=== PATIENT | male | born 1950 | race Caucasian/White ===

== ENCOUNTER 2016-12-02 21:11 | Inpatient (IN) ==
--- NOTE | 2016-12-02 21:39 | Diag Imaging Result Doc PS360 ---
EXAM: CT HEAD W/O CONTRAST HISTORY: UNSTEADY GAIT, BLURRED VISION TECHNIQUE: CT brain without contrast. Dose reduction protocol. COMPARISON: 12/03/2015 FINDINGS: No parenchymal hemorrhage. No epidural or subdural hematoma. No subarachnoid hemorrhage. No mass identified on this noncontrasted exam. No hydrocephalus. Mild atrophy. There are mild chronic microvascular ischemic changes. No sinus opacification. IMPRESSION: No hemorrhage. Atrophy with chronic microvascular ischemic changes. Electronically signed by Harvinder Fernandez 12/02/2016 9:37 PM
--- NOTE | 2016-12-02 21:52 | PROVIDER DOCUMENTATION ---
HPI-General Adult - General Stated Complaint: UNSTEADY GAIT, BLURRED VISION Time Seen by Provider: 12/02/16 21:25 Source: patient Allergies/Adverse Reactions: Patient Allergies Allergy/AdvReac Type Severity Reaction Status Date / Time No Known Allergies Allergy Verified 12/02/16 21:59 Home Medications: Home Medication List Medication Instructions Recorded Confirmed Last Taken Type Ipratropium/Albuterol INH 1 puff INH RTQ6H PRN 12/16/15 08/06/16 08/05/16 History [Combivent Respimat Inhaler] Oxycodone HCl/Acetaminophen 1 each PO Q4H PRN PRN 12/16/15 08/06/16 08/05/16 History [Percocet 10-325 mg Tablet] Albuterol 2.5MG/Ipratrop 0.5MG 3 ml INH RTQ4H #0 neb 12/21/15 08/06/16 08/05/16 Rx [Duoneb (A & A)] Ergocalciferol (Vitamin D2) 50,000 unit PO Q7D #0 capsule 12/21/15 08/06/16 Rx [Vitamin D] Escitalopram [Lexapro] 20 mg PO QAM #0 tablet 12/21/15 08/06/16 08/05/16 Rx Gabapentin [Neurontin] 600 mg PO TID #0 tablet 12/21/15 08/06/16 08/05/16 Rx Mometasone/Formoterol [Dulera 200 2 puff IH RTBID #0 inhaler 12/21/15 08/06/16 08/05/16 Rx Mcg/5 Mcg Inhaler] ROSUVAstatin [Crestor] 5 mg PO QPM #0 tablet 12/21/15 08/06/16 08/05/16 Rx Pantoprazole [Protonix] 40 mg PO BID 07/05/16 08/06/16 08/05/16 History Hydrochlorothiazide 0 mg PO 08/06/16 08/05/16 History Metoprolol Succinate E.r. [Toprol 100 mg PO DAILY 08/06/16 08/06/16 08/05/16 History Xl] - History of Present Illness -Gen Adult Nature of Presenting Problems: Mr. Orona states that as of this morning he has developed double vision worse with movement. No previous such events. It is also associated with balance issues. He feels as if he is going to fall over. No recent infections or sickness. Denies chest pain or shortness of breath. Denies previous stroke. Is 1PPD smoker. Patient recently stopped taking Elliquis for the past week so that he may receive spinal shots for his back pain. He also has stopped taking his aspirin since he ran out. Location of Pain/Injury: reports: none Pain Radiation: reports: no radiation Quality of Pain: reports: none Severity: reports: mild Onset/Duration: reports: this morning Context/Activities at Onset: reports: none Modifying Factors: improves with: nothing Associated Symptoms: reports: sensory/motor loss, trouble walking, other ( double vision). denies: syncope Similar Symptoms Previously?: No Recently seen or treated by another doctor?: No Review of Systems - Adult - REVIEW OF SYSTEMS - ADULT Constitutional: reports: no symptoms reported Eyes: reports: see HPI, blurred vision, double vision. denies: discharge, dry eyes, decreased vision, eye pain, redness Ears, Nose, Mouth & Throat: reports: no symptoms reported Cardiovascular: reports: no symptoms reported Respiratory: reports: no symptoms reported Gastrointestinal: reports: no symptoms reported Genitourinary: reports: no symptoms reported Musculoskeletal: reports: no symptoms reported, other (difficulty walking of new onset) Integumentary: reports: no symptoms reported Neurological: reports: dizziness/vertigo, loss of balance Psychiatric: reports: no symptoms reported Endocrine: reports: no symptoms reported Hematologic/Lymphatic: reports: no symptoms reported Allergic/Immunologic: reports: no symptoms reported All Other Systems: Reviewed and Negative Past History - Adult - PAST MEDICAL HISTORY-ADULT Review of Records: reports: Old Records Reviewed, Nursing Assessment Review, Medications Reviewed, Social history reviewed & non-contributory. Major Childhood Illnesses: reports: denies history Cardiovascular: reports: denies history Respiratory: reports: COPD Gastrointestinal: reports: denies history Obstetrical/Gynecological: reports: denies history Genitourinary: reports: denies history Musculoskeletal: reports: other fractures (pelvic) Neurological: reports: denies history Endocrine/Immune: reports: denies history Other Conditions: reports: denies history - PRIOR HOSPITALIZATIONS Prior Hospitalizations: reports: for other non-related - IMMUNIZATION STATUS Childhood Immunizations: See Nurse Assessment Flu Vaccine: See Nurse Assessment - SOCIAL HISTORY Smoking: cigarettes Provider spent 3-5 mins advising pt. on dangers of tobacco.: Discussed manners to quit use, and f/u contacts for add'l counseling. Physical Exam-General - PHYSICAL EXAM-ADULT Initial Vital Signs Reviewed: Yes - CONSTITUTIONAL General Appearance: appears well, alert, no apparent distress - EYES Eyes: PERRL/EOMI, pink conjunctivae, EOM palsy, other (symptoms of Internuclear ophthalmoplegia). negative: conjuctival exudate, photophobia, sclera injected, scleral icterus - HEAD, EARS, NOSE, MOUTH & THROAT HENMT: normocephalic/atraumatic - NECK Neck: non-tender - RESPIRATORY Respiratory: chest non-tender - CARDIOVASCULAR Cardiovascular: normal peripheral pulses, no JVD - GASTROINTESTINAL (ABDOMEN) Abdominal Exam: normal bowel sounds - LYMPHATIC Lymphatic: no adenopathy - MUSCULOSKELETAL Back Exam: normal inspection, kyphosis, other (mild ataxic gait of new onset. resting tremor is at baseline) Extremity: normal range of motion - SKIN Integumentary: normal color - NEUROLOGIC Neurologic: cafe attendant II-XII nml as tested, abnormal cerebellar tests, abnormal gait, motor weakness. negative: facial droop - PSYCHIATRIC Psych/Mental Status: normal mood/affect Progress - PLAN OF CARE/RESULTS Progress/Plan/Lab Results: Orders Category Date Time Status Cardiac Monitoring DIRECTED Care 12/02/16 21:25 Active Finger Stick Blood Sugar (ED) DIRECTED Care 12/02/16 21:25 Active Saline Loc NOW Care 12/02/16 21:25 Active CHEST-PORTABLE [RAD] Stat Exams 12/02/16 21:[address] HEAD W/O CONTRAST [CT] Stat Exams 12/02/16 21:13 Completed CBC WITH ELECTRONIC DIFF [HEME] Stat Lab 12/02/16 21:25 Uncollected COMPREHENSIVE METABOLIC PANEL [CHEM] Stat Lab 12/02/16 21:25 Uncollected PROTIME WITH INR [COAG] Stat Lab 12/02/16 21:25 Uncollected PTT [COAG] Stat Lab 12/02/16 21:25 Uncollected TROPONIN T Stat Lab 12/02/16 21:25 Uncollected URINALYSIS W/POSS RFLX CULT-1 [URINALYSIS] Stat Lab 12/02/16 21:25 Uncollected URINE DRUG SCREEN Stat Lab 12/02/16 21:25 Uncollected EKG [EKG] Stat Ther 12/02/16 21:25 Ordered Result Diagrams: 12/02/16 21:40 12/02/16 21:40 - REASSESSMENT Reassessment #1 Time Reassessed: 00:36 (Patient status unchanged since admission. Discussed with Dr. Snyder (hospitalist) to have the patient admitted for full stroke workup. ) Status: unchanged Departure - Departure Date of Disposition Decision: 12/03/16 Time of Disposition Decision: 00:35 DIAGNOSIS: Stroke, Blurred vision Disposition: ADMITTED INPATIENT 09 Certified Medical Emergency: Emergent Condition: Fair Referrals and Follow-Ups: Winter Lee MD [Primary Care Provider] - Discharge Education: Smoking, You Can Quit, [id number], Smoking Cessation, Tips for Success - Critical Care Note This patient required my direct & personal management of CC.: No Attestation - Physician/ MELE Attestation Patient care was provided by Advanced Practice Provider:: No The physician spent face to face time with patient:: Yes Advanced Practice Provider documentation review:: Supervising physician onsite and consulted in the evaluation and care of this patient. The physician did have a face to face encounter with the patient.
[2016-12-02 22:06] LABS: MANUAL DIFF NEEDED? NO
[2016-12-02 22:09] LABS: BASO% 0.5 % (0.0-0.8); EOS# 0.08 X1000 (0.0-0.7); EOS% 0.6 % (0.0-10.0); HEMATOCRIT 41.8 % (42.0-52.0); HEMOGLOBIN 14.5 g/dL (14.0-18.0); IMM GRAN% 1.5 % (0.0-0.5); LYMPH# 2.31 X1000 (1.2-3.4); LYMPH% 17.4 % (20.5-51.1); MCH 30.6 PG (27-31); MCHC 34.7 g/dL (33-37); MCV 88.2 FL (81-99); MONO# 1.38 X1000 (0.11-0.59); MONO% 10.4 % (1.7-9.3); MPV 11.1 FL (7.4-10.4); NEUT% 69.6 % (42.2-75.2); PLT 271 X1000 (130-400); RBC 4.74 XMIL (4.7-6.1)
--- NOTE | 2016-12-02 22:09 | Diag Imaging Result Doc PS360 ---
EXAM: CHEST-PORTABLE HISTORY: stroke like symptoms TECHNIQUE: Portable AP COMPARISON: 07/21/2016 FINDINGS: Sternal wires are present. Lungs are well expanded. The heart is not enlarged. The vessels are not distended. No consolidation. No pleural effusions identified. IMPRESSION: Negative chest. Electronically signed by Harvinder Fernandez 12/02/2016 10:07 PM
[2016-12-02 22:21] LABS: INR 1.08; PROTIME 11.4 Seconds (9.2-11.7); PTT 24.2 Seconds (22.0-36.0)
[2016-12-02 22:32] LABS: ALBUMIN 4.1 g/dL (3.5-5.0); CALCIUM 9.7 mg/dL (8.8-10.2); POTASSIUM 3.7 mmol/L (3.5-5.1); TOTAL BILIRUBIN 0.48 mg/dL (0.20-1.00); TOTAL PROTEIN 7.8 g/dL (6.3-8.3)
[2016-12-03 00:04] LABS: URINE CULTURE NEEDED? NO; URINE MICRO REVIEW NEEDED? NO; URINE SOURCE CLEAN CATCH
[2016-12-03] MEDS ORDERED: NS 1,000 ML IV ONE (00:05)
--- NOTE | 2016-12-03 00:11 | ED EKG INTERP ---
This chart was entered by Iza Rai Scribe, acting as scribe for Thomas Orr MD. EKG Interpretation - EKG Time of EKG reading by physician:: 21:41 EKG Read and Signed by:: Thomas Orr EKG Interpretation (*Must complete 3 of following elements*): Abnormal Rate: 77 Rhythm: normal sinus rhythm Comments: abnormal ECG Attestation - Physician/ MELE Attestation Patient care was provided by Advanced Practice Provider:: No The physician spent face to face time with patient:: Yes Advanced Practice Provider documentation review:: Supervising physician onsite and consulted in the evaluation and care of this patient. The physician did have a face to face encounter with the patient. This chart was documented by the indicated scribe, (Iza Rai Scribe) and accurately reflects the services I performed and decisions made by me, Thomas Orr MD, as attested by the provider's signature.
[2016-12-03 00:13] LABS: BILIRUBIN URINE NEGATIVE (NEGATIVE); BLOOD URINE NEGATIVE (NEGATIVE); COLOR YELLOW; GLUCOSE URINE NEGATIVE (NEGATIVE); LEUKOCYTES URINE NEGATIVE (NEGATIVE); NITRITE URINE NEGATIVE (NEGATIVE); PH URINE 5.5; PROTEIN URINE 30 mg/dL (NEGATIVE); SP GRAVITY URINE 1.016; TURBIDITY URINE CLEAR (CLEAR); UR EPITHELIAL CELLS <10 /HPF (<10); URINE BACTERIA NEGATIVE /HPF; URINE RBC <10 /HPF (<10); URINE WBC <10 /HPF (<10); UROBILINOGEN URINE NORMAL (NORMAL)
[2016-12-03 00:27] LABS: UR AMPHETAMINES QUAL NONE DETECTED (NONE DETECT); UR BARBITUATES QUAL NONE DETECTED (NONE DETECT); UR BENZODIAZEPIN QUAL NONE DETECTED (NONE DETECT); UR CANNABINOIDS QUAL NONE DETECTED (NONE DETECT); UR COCAINE QUAL NONE DETECTED (NONE DETECT); UR METHADONE QUAL NONE DETECTED (NONE DETECT); UR OPIATES QUAL NONE DETECTED (NONE DETECT); UR OXYCODONE QUAL NONE DETECTED (NONE DETECT); UR PCP QUAL NONE DETECTED (NONE DETECT)
[2016-12-03] MEDS ORDERED: PROTONIX IV ONE (01:40)
[2016-12-03] MEDS ORDERED: ASPIRIN PO ONE (01:40)
[2016-12-03] MEDS ORDERED: SODIUM CHLORIDE 0.9% INJ ONE (01:40)
[2016-12-03] MEDS ORDERED: ZOFRAN IV PRN (02:59)
[2016-12-03] MEDS ORDERED: TYLENOL PO PRN (02:59)
[2016-12-03] MEDS ORDERED: NICODERM PATCH TD ONE (02:59)
[2016-12-03] MEDS: NS 1,000 ML IV SCH (03:26)
[2016-12-03] MEDS: HEPARIN SUBQ SCH ×2 (03:27→21:32)
[2016-12-03] MEDS ORDERED: THIAMINE 100 MG in NS 50 ML IV ONE (04:00)
--- NOTE | 2016-12-03 05:24 | HISTORY AND PHYSICAL ---
PRIMARY CARE PROVIDER: Dr. Laguerre. CHIEF COMPLAINT: Double vision and unsteady gait. HISTORY OF PRESENT ILLNESS: This is a 66-year-old, male who presents to the emergency room tonight with 1 day of double vision and an unsteady gait. He did state that over the last month or two, his gait has become more and more unsteady, and he has had several falls. He also apparently stopped taking his Eliquis and aspirin to have epidural blocks in his back for low back pain. The patient was unable to tell us what exactly he takes Eliquis. At any rate, he was unable to tell us why he takes Eliquis but he started having increased trouble walking and double vision so he came into the emergency room. He denied any other associated symptoms such as nausea, vomiting, syncope, fever, chills, chest pain, headache. He did have complaint of abdominal pain; however, not at this time and states that he thinks he has ulcers but denies any black, tarry stools or kamille red blood in his stool. Also denies any urinary complaints. A CT scan was obtained, as well as a chest x-ray in the emergency room. The chest x- ray showed no acute disease. The CT of his head showed atrophy with chronic microvascular ischemic changes but no acute intracranial process. Laboratory data showed a sodium of 130, a BUN of 38, and a creatinine of 1.8. Urine was unremarkable. Toxicology screen was negative. On examination, the patient did show isolated left eye medial rectus palsy but otherwise was neurovascularly intact. He will be admitted to the medical floor for further evaluation and treatment. ALLERGIES: No known drug allergies. PAST MEDICAL HISTORY: 1. COPD. Continues to smoke one and a half packs of cigarettes per day. Smoking cessation was gone over with the patient. 2. Benign prostatic hyperplasia. 3. CAD. 4. Anxiety and depression. 5. Metabolic syndrome. 6. Gastritis and reflux disease. 7. Hypertension. 8. Hyperlipidemia. 9. Hypogonadism. 10. Hyperuricemia. 11. Kidney stones. 12. Umbilical hernia. PREVIOUS SURGICAL HISTORY: 1. Coronary artery bypass graft. 2. Bilateral hip surgery. SOCIAL HISTORY: . Lives in [place]. Continues to smoke a pack and a half a day. Has a remote history of alcohol abuse, drinking up to a 12 pack a day but he states that he has not drink any more than socially in the past 10 years. No illicit drug use or abuse. FAMILY HISTORY: Father had lung cancer, at age 72. Mother had diabetes mellitus and CVA. HOME MEDICATIONS: Home medication list has not been reconciled. An order was placed for nursing to reconcile home medications in the computer. REVIEW OF SYSTEMS: Fourteen point review of systems conducted with the patient. Pertinent positives listed above in the HPI. All other systems reviewed and found to be negative. PHYSICAL EXAMINATION: VITAL SIGNS: Temperature 98.1 degrees, pulse 74, respirations 19, blood pressure 128/88, oxygen saturation 94% on room air. GENERAL: A pleasant but unkempt, 66-year-old male lying on the ER stretcher. Answers all questions appropriately. No acute distress. HEENT: Head is atraumatic, normocephalic. Pupils equal, round, and reactive to light. Left eye isolated medial rectus palsy noted. Sclerae are anicteric. Conjunctivae are pink. Oral mucosa is moist. NECK: Supple. No JVD. No thyromegaly. Trachea is midline. CARDIAC: S1-S2 appreciated. No murmurs, gallops, rubs. LUNGS: Expiratory wheezing, mildly prolonged expiratory phase. No rhonchi, no rales. Symmetrical rise and fall with respirations. ABDOMEN: Protuberant, soft, nondistended, nontender. Bowel sounds hyperactive in all 4 quadrants. Umbilical hernia noted. No pulsatile mass. No organomegaly. EXTREMITIES: No clubbing, cyanosis, or edema. There are 2+ pedal pulses bilaterally. GENITOURINARY: Patient voids, otherwise deferred. NEUROLOGICAL: Alert and oriented x3. Aside from isolated medial rectus palsy in the left eye, no other cranial nerve deficits. Cranial nerve 3 was also otherwise intact. DIAGNOSTIC DATA: CT and chest x-ray, no acute intracranial process. LABORATORY DATA: WBC 13.24, hemoglobin of 14.5, hematocrit 41.8, platelet count 271,000. Coagulations within normal limits. Sodium 130, potassium 3.7, chloride 86, carbon dioxide 24, BUN 38, creatinine 1.8, glucose 148. Urine unremarkable. Toxicology screen is negative. ASSESSMENT AND PLAN: 1. 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 We will order MRI, carotid ultrasound, and echocardiogram for the morning. Further followup by Dr. Laguerre or Dr. Lee, his primary care providers. We will consult Dr. Conrad as well for evaluation. We will give a 325 aspirin but then start 162 mg aspirin daily. As noted, the patient stopped taking his Eliquis. We are unsure why he takes Eliquis at this time. We will defer to his primary care doctors restarting this medication. 2. Chronic obstructive pulmonary disease with continued tobacco use. Smoking cessation was gone over with the patient who does not want to stop. NicoDerm patch was added to his medication list. 3. Gastroesophageal reflux disease and gastritis. The patient feels as if he has an ulcer. We will consult gastroenterology to see patient, place on Protonix 40 mg intravenous every 12 hours. 4. Acute kidney injury on chronic kidney disease, I believe stage III. We will give mild fluid resuscitation. He received a liter bolus in the emergency room. 5. Hyponatremia. It is possible that the patient is on hydrochlorothiazide as well as an SSRI as he has a noted history of anxiety and depression. Again, the patient does not have a home medication list at this time but these are possible causes for hyponatremia. Hopeful that this will resolve with gentle fluid hydration. 6. Coronary artery disease, status post coronary artery bypass graft. Aware. Home medications to be continued when possible. 7. Hyperlipidemia. Patient was on Crestor. We will change to atorvastatin 40 mg daily and then defer to the primary care team. 8. Further recommendations per patient's clinical course. Dictated by DELON Funk for Natalie Snyder MD Seen and examined Pt; discussed case with LANGUAGE TEACHER. cc: DELON Funk MD Jagan Reddy, MD Bharat K. Vakharia, MD MTDD
--- NOTE | 2016-12-03 05:26 | EKG Report ---
Test Performed on : 12/02/2016 9:41:12 PM Test Reason : Stroke like symptoms Blood Pressure : / mmHG Vent. Rate : 077 BPM Atrial Rate : 077 BPM P-R Int : 134 ms QRS Dur : 088 ms QT Int : 396 ms P-R-T Axes : 008 098 264 degrees QTc Int : 448 ms Normal sinus rhythm. Rightward axis ST \T\ T wave abnormality, consider inferior ischemia ST \T\ T wave abnormality, consider anterolateral ischemia Abnormal ECG When compared with ECG of 21-JUL-2016 17:37, T wave inversion now evident in Inferior leads T wave inversion now evident in Lateral leads Unconfirmed Result
--- NOTE | 2016-12-03 07:13 | EKG Report ---
Test Performed on : 12/03/2016 06:43:06 AM Test Reason : chest pain Blood Pressure : / mmHG Vent. Rate : 073 BPM Atrial Rate : 073 BPM P-R Int : 144 ms QRS Dur : 102 ms QT Int : 424 ms P-R-T Axes : 045 095 022 degrees QTc Int : 467 ms Normal sinus rhythm. Rightward axis ST \T\ Marked T wave abnormality, consider anterolateral ischemia Prolonged QT Abnormal ECG When compared with ECG of 02-DEC-2016 21:41, Inferior leads ST less depressed in ST/T changes in the precordial leads - perhaps more evident than 12/02/2016 at 21:41pm Clinical Correlation advised Confirmed by Austin Lucio DO ([id number]) on 12/07/2016 12:14:57 PM
--- NOTE | 2016-12-03 09:53 | Diag Imaging Result Doc PS360 ---
MRI BRAIN W/O CONTRAST - 12/03/2016 INDICATION: possible midbrain cva COMPARISON: Head CT 12/02/2016 FINDINGS: There is no area of restricted diffusion. There is mild periventricular white matter hyperintensity compatible with chronic microvascular disease. No intracranial mass or hemorrhage. Midline structures including optic chiasm and pituitary are grossly normal. IMPRESSION: Mild chronic microvascular disease. No acute abnormality. Electronically signed by Shayne Burt 12/03/2016 9:51 AM
[2016-12-03] MEDS: ASPIRIN EC PO SCH (10:33)
[2016-12-03] MEDS: PROTONIX IV SCH ×2 (10:33→21:33)
--- NOTE | 2016-12-03 14:55 | CONSULTATION ---
DATE OF CONSULTATION: 12/03/2016 SUBJECTIVE: Mr. Orona is 66 years old and he reports sudden onset, midday yesterday, of vertical diplopia and unsteady gait, to the point that he could hardly walk. He did not notice weakness or clumsiness in one leg more than the other. There was never unconsciousness, altered awareness, memory gap. He noticed he would see single if he covered either eye. He did not notice blindness or focal loss of visual field. There was no significant headache. He does not recall significant slurred speech or trouble swallowing. He has never had an episode like this before. He has not had previous diagnosed stroke. There is past history of hypertension, dyslipidemia, ischemic heart disease, COPD. He continues to smoke cigarettes. He had been taking daily aspirin and Eliquis together chronically, and tolerating that regimen. He ran out of aspirin about a month ago. He stopped Eliquis a few weeks ago for a planned procedure. He had been taking his other medicines as prescribed. There is past history of significant ethanol abuse. He stopped that 6 or 7 years ago, cutting down gradually, to the point that he hardly uses ethanol at all now. He is certain that he did not become intoxicated yesterday. When he did drink heavily, he never had an episode of diplopia and gait difficulty. DIAGNOSTICS: Workup here includes lab, showing blood sugar 148, sodium 130. Initial noncontrast CT of the head was unremarkable. Brain MRI today, without contrast, is also reported unremarkable. PHYSICAL EXAMINATION: Vital signs: He has been afebrile. Systolic blood pressures have ranged 110's to 130's. General: On exam, he is awake, alert, attentive and appropriate. Speech is not dysarthric. Language function is intact. Memory is good. He did not confabulate. Head and neck are unremarkable. Neurologic: He has full visual jacob, tested monocularly by confrontational finger-counting. Extraocular movements are grossly full, based on confrontation , but he reports diplopia with vertical component, more prominent in downgaze than upgaze. With cover/uncover testing, this is consistently typical of weakness in a depressor of the left eye. Pupils react to light. There is no ptosis. Facial sensation and motility are symmetric. Gag is intact. Tongue is midline. He can hear. Shoulder shrug is equal. He has good power in the arms and legs. Limb tone is symmetric. He did well on [id number] and [id number] testing. He reports good pinprick and light touch appreciation over the feet and hands. Proprioception is normal at the great toe MTP joint bilaterally. Gait is wide-based, mostly ataxic, without definite focal features. In Romberg position he is unsteady with eyes open and with eyes closed. Ankle reflexes are trace to 1+ bilaterally. IMPRESSION: Apparent isolated left eye depressor weakness, with sudden onset, is consistent with an ischemic cranial mononeuropathy. The associated unsteady gait makes feature much more worrisome for a brainstem or cerebellar event, but negative MRI is reassuring. He has minimal clinical evidence of peripheral neuropathy, including ankle hyporeflexia, which may predispose him to unsteady gait associated with acute vision disturbance. PLAN: I do not think we have to do anything urgently from a neurologic standpoint now. We can continue to manage with aspirin, resume his anticoagulation medicine when okay, based on the planned procedure, continue to treat blood pressure cautiously, continue to treat lipids and blood sugar aggressively. I have strongly encouraged him to quit smoking cigarettes. I agree with adding thiamine, but I do not see any other evidence of Wernicke encephalopathy. Thanks for asking me to see Mr. Orona. cc: MD Brennen Pretty III, MD MTDD
[2016-12-03] MEDS: ALBUTEROL NEB INH PRN ×2 (19:40→23:03)
[2016-12-03] MEDS ORDERED: ZANAFLEX PO SCH (21:00)
[2016-12-03] MEDS: PERCOCET-5 PO PRN (21:33)
[2016-12-03] MEDS: SODIUM CHLORIDE 0.9% INJ SCH (21:33)
[2016-12-03] MEDS: LIPITOR PO SCH (21:33)
[2016-12-04] MEDS: CARAFATE LIQUID PO SCH ×5 (00:35→23:45)
--- NOTE | 2016-12-04 03:01 | PROGRESS NOTE ---
DATE: 12/03/2016 SUBJECTIVE: Patient is here with complaints of a 1-day history of headache and double vision. Was admitted yesterday by the hospitalist. REVIEW OF SYSTEMS: No headache. No obvious focal symptoms or weakness. PAST MEDICAL HISTORY: Reviewed. PAST SURGICAL HISTORY: Reviewed. MEDICINES: Reviewed. PHYSICAL EXAMINATION: Vital Signs: Afebrile. Vitals are stable. HEENT: Atraumatic, normocephalic. Pupils equal, reactive to light. No ptosis observed. To me, right eye slightly downward. Extraocular muscles intact. Neck: Supple. Chest: Clear to auscultation. Heart: Sounds are regular. Abdomen: Belly is soft, nontender. Good bowel sounds. No obvious focal symptoms. INVESTIGATIONS: CBC: White cell count 13, hematocrit 42, platelet 271,000. PT/INR is normal. SMA-7: Sodium 130, potassium 3.7, glucose 156. LFTs were normal. Triglycerides 130, cholesterol 119, HDL 25. Urinalysis is clear. Urine toxic screen is negative. ASSESSMENT AND PLAN: 1. Headache and double vision on the right side, suspicious with right 4th nerve palsy. The patient was examined in the echocardiography. He is going for MRI of the brain. Neurology consult was obtained. 2. Azotemia, hyponatremia. IV fluids. Check the SMA-7. 3. Deep venous thrombosis and gastrointestinal prophylaxis with heparin and Protonix respectively. 4. Reconcile home medications. 5. We will follow up on the pending labs. LEVEL OF DOCUMENTATION: 35 minutes. cc: Brennen Lee MD
--- NOTE | 2016-12-04 04:11 | CONSULTATION ---
DATE OF CONSULTATION: 12/03/2016 PRIMARY CARE PROVIDER: Mirna Lee M.D. INDICATION FOR CONSULTATION: 1. Dyspepsia. 2. History of peptic ulcer disease. 3. Refractory heartburn. HISTORY OF PRESENT ILLNESS: The patient is a 66-year-old white male who is followed by Dr. Hever Reilly for management of gastritis, gastric ulcer disease and gastroesophageal reflux disease. The patient states that he was doing well in his usual state of health until 1 day prior to admission. He presented with double vision and unsteady gait for 24 hours. He is on Eliquis at home. He stopped his Eliquis in order to undergo epidural blocks for his low back pain. He was subsequently admitted for further evaluation of double vision and unsteady gait. As part of his recent review of systems, he noted dyspepsia and severe heartburn. Because of his history of recurrent ulcer disease, we were asked to participate in his care. Please note during the history, the patient was sitting up in the bed and rocking in discomfort in the epigastrium. He describes severe heartburn with sour brash and pyrosis. PAST MEDICAL HISTORY: 1. COPD. 2. Benign prostatic hypertrophy. 3. Coronary artery disease. 4. Depression. 5. Metabolic syndrome. 6. Obesity. 7. Gastritis. 8. Gastroesophageal reflux disease. 9. Peptic ulcer disease. 10. Hypertension. 11. Hyperlipidemia. 12. Hypogonadism. 13. Hyperuricemia. 14. Kidney stones. 15. Umbilical hernia. PAST SURGICAL HISTORY: 1. Coronary artery bypass graft surgery. 2. Bilateral hip surgery. SOCIAL HISTORY: The patient is and lives in [place]. He smokes 1-1/2 packs of cigarettes per day. In the past, he drank up to 12 beers per day. However, for the last 10 years, he reports social alcohol use. He denies illicit drug use or substance abuse. FAMILY HISTORY: Remarkable in that his father had lung cancer and at age 72 years of age. His mother had diabetes mellitus and a stroke. MEDICATION ALLERGIES: No medication allergies. HOME MEDICATIONS: 1. Crestor. 2. Protonix. 3. Percocet 10. 4. Dulera. 5. Toprol. 6. Combivent. 7. Neurontin. 8. Lexapro. 9. Vitamin D2. 10. DuoNeb. PHYSICAL EXAMINATION: Vital Signs: On exam, his blood pressure is 135/78, pulse 81, respiration 18, temperature of 98.1 degrees. HEENT: Negative for jaundice. His oropharyngeal mucosa membranes are slightly dry. His conjunctivae are unremarkable. Pulmonary: He has inspiratory and expiratory wheezes. He has chest congestion that rattles with deep breathing. Cardiovascular: He has a regular rate and rhythm with no gallops or rubs. Abdominal: Exam reveals normoactive bowel sounds. The abdomen is soft, but distended. There is moderate epigastric tenderness with mild diffuse tenderness. There is no rebound or guarding. Extremities: Bilaterally are notable for trace edema but otherwise are unremarkable. LABORATORY DATA: Reveals a hemoglobin of 14.5 with hematocrit of 41.8 and a white count of 3.24. These labs are taken from 12/02/2016. He also had a platelet count of 271,000. Also on 12/02/2016, his PT was 11.4 with an INR of 1.08 and a PTT of 24.2. Sodium on was 130, potassium 3.7, chloride 86, CO2 26, BUN 38, creatinine 1.8 with a glucose of 124. Calcium is 9.7, total bilirubin 0.48, AST 15, ALT 9, alkaline phosphatase 76, total protein 7.8. Albumin 4.1. IMPRESSION: 1. Dyspepsia. 2. Severe heartburn. 3. Epigastric pain. 4. Borderline low hemoglobin. RECOMMENDATION: 1. I recommend that the patient be placed on Carafate 1 g 4 times a day for 12 weeks. In addition, his PPI therapy on a once-daily basis to twice-daily basis should be continued. I agree with Protonix 40 mg IV q.12 hours while as an inpatient. 2. I would monitor serial hemoglobins and hematocrits. 3. He will need transfusion as indicated. 4. Additional recommendations to follow based on the clinical course. cc: MD Brennen Alvarez MD Bharat K. Vakharia, MD Khurshid Yousuf, MD Kevin Omeara MTDD
[2016-12-04] MEDS: NS 1,000 ML IV SCH ×3 (07:09→20:59)
[2016-12-04] MEDS: ALBUTEROL NEB INH PRN ×5 (07:28→23:01)
[2016-12-04 07:33] LABS: MANUAL DIFF NEEDED? NO
[2016-12-04 07:45] LABS: BASO% 0.7 % (0.0-0.8); EOS# 0.14 X1000 (0.0-0.7); EOS% 2.1 % (0.0-10.0); HEMATOCRIT 36.3 % (42.0-52.0); HEMOGLOBIN 12.4 g/dL (14.0-18.0); IMM GRAN# 0.04 X1000 (0.0-0.04); IMM GRAN% 0.6 % (0.0-0.5); LYMPH# 1.65 X1000 (1.2-3.4); LYMPH% 24.5 % (20.5-51.1); MCH 30.6 PG (27-31); MCHC 34.2 g/dL (33-37); MCV 89.6 FL (81-99); MONO# 0.53 X1000 (0.11-0.59); MONO% 7.9 % (1.7-9.3); MPV 10.8 FL (7.4-10.4); NEUT% 64.2 % (42.2-75.2); PLT 172 X1000 (130-400); RBC 4.05 XMIL (4.7-6.1)
--- NOTE | 2016-12-04 07:47 | ECHO REPORT ---
ORDER DATE: 12/03/2016 MEASUREMENTS: Left ventricular end-diastolic diameter 4.8, end-systolic diameter 2.7, septal thickness 0.8, posterior wall thickness 0.8, left atrium 4.2, aortic root 3.9. SUMMARY: 1. Technically difficult study due to limited acoustic window quality. 2. Mild sclerosis of trileaflet aortic valve demonstrated with adequate aortic valve opening evident. Peak gradient across the valve is less than 10 mmHg. Mitral, tricuspid, and pulmonic valves are without structural abnormality with mild mitral regurgitation, mild tricuspid regurgitation, and mild pulmonic insufficiency. The estimated systolic PA pressure by Doppler is 35 to 40 mmHg. The aortic root is borderline enlarged. 3. Normal left ventricular dimensions demonstrated. Estimated left ventricular ejection fraction appears to be at least 65%. There is a small area of thinning and dyskinesis in the left ventricular apex suggesting a small apical aneurysm versus diverticulum. Doppler suggests grade 1 left ventricular diastolic dysfunction. Left atrium is mildly enlarged. Right atrium and right ventricle are of normal size with preserved right ventricular systolic function. 4. No pericardial effusion. 5. Inferior vena cava appearance suggests elevation in central venous pressure. CONCLUSIONS: 1. Technically difficult study. 2. Mild aortic valve sclerosis without stenosis. 3. Mild mitral regurgitation. 4. Mild tricuspid regurgitation with mild pulmonary hypertension by Doppler. 5. Estimated left ejection fraction at least 65%. Small area of thinning and dyskinesis in the apex suggests small apical aneurysm versus diverticulum. 6. Grade 1 left ventricular diastolic dysfunction. 7. Mild left atrial enlargement. 8. Borderline aortic root enlargement. cc: MD Deondre Zambrano CRNP Jagan Reddy, MD
[2016-12-04 08:04] LABS: CALCIUM 8.7 mg/dL (8.8-10.2)
[2016-12-04] MEDS: ASPIRIN EC PO SCH (08:22)
[2016-12-04] MEDS: PROTONIX IV SCH ×2 (08:23→21:02)
[2016-12-04] MEDS: HEPARIN SUBQ SCH ×2 (08:23→21:05)
[2016-12-04] MEDS: NICODERM PATCH TD SCH (08:23)
[2016-12-04] MEDS: SODIUM CHLORIDE 0.9% INJ SCH (08:23)
--- NOTE | 2016-12-04 08:49 | PROGRESS NOTE ---
DATE: 12/04/2016 SUBJECTIVE: Patient was seen by Dr. Conrad, Dr. Sara Cameron. Complains of heartburn and waiting for EGD. REVIEW OF SYSTEMS: Abdominal pain. OBJECTIVE: Vital Signs: On examination, vitals are stable. Continues to have double vision. Extraocular muscles intact. Chest: Clear. Heart: Sounds are regular. Abdomen: Belly is soft and nontender. Good bowel sounds. No masses palpable. Neurologic: No neurological deficits. INVESTIGATIONS: CBC, white cell count 6.7, hematocrit 36, platelets 172. SMA-7: Sodium 135, potassium 3.0, BUN 27, creatinine 1.3, glucose 111, calcium 8.7. Urinalysis is clear. ASSESSMENT AND PLAN: 1. Headache and double vision due to right superior oblique palsy. Is improving. Etiology to be determined. MRI: The findings are negative. Follow up on the echocardiography. 2. Dehydration. Continue on IV fluids. Getting better on hyponatremia. 3. Hypokalemia. Replace the potassium. 4. Upper abdominal pain. Dr. Cameron is going to do EGD, and we will follow up. LEVEL OF DOCUMENTATION: 25 minutes. cc: Brennen Lee MD
[2016-12-04] MEDS: PERCOCET-5 PO PRN ×3 (10:49→23:47)
[2016-12-04] MEDS: POTASSIUM CHLORIDE 20 MEQ/SWI 20 MEQ/100 ML IVPB IV SCH ×2 (11:17→14:45)
--- NOTE | 2016-12-04 12:32 | PROGRESS NOTE ---
DATE: 12/04/2016 SUBJECTIVE: Mr. Orona reports significant improvement in his gait and in his vision. He still sees double, but reports that is less prominent than yesterday. OBJECTIVE: On exam, he is awake, alert. He appears to have full gaze with confrontational testing. He reports vertical diplopia on upgaze and downgaze and reports that is much less prominent today than yesterday. There is no new neurologic finding on brief bedside exam. I do not have any new suggestion today. I would continue to follow clinically. Thanks for asking me to see Mr. Orona. cc: MD Brennen Pretty III, MD
[2016-12-04] MEDS: ZANAFLEX PO SCH (21:04)
[2016-12-04] MEDS: LIPITOR PO SCH (21:05)
[2016-12-05] MEDS: CARAFATE LIQUID PO SCH ×3 (06:30→22:14)
[2016-12-05 07:19] LABS: HEMOGLOBIN 11.7 g/dL (14.0-18.0); MCH 30.5 PG (27-31); MCHC 33.4 g/dL (33-37); MCV 91.4 FL (81-99); MPV 10.9 FL (7.4-10.4); RBC 3.83 XMIL (4.7-6.1)
[2016-12-05] MEDS: ALBUTEROL NEB INH PRN ×3 (07:40→22:44)
[2016-12-05 07:46] LABS: AGAP 14; BUN 13 mg/dL (8-22); CALCIUM 8.9 mg/dL (8.8-10.2); CHLORIDE 96 mmol/L (98-107); COSMO 272; MAGNESIUM 1.2 mg/dL (1.5-2.7); POTASSIUM 3.2 mmol/L (3.5-5.1); SODIUM 135 mmol/L (136-145); TCO2 25 mmol/L (25-35)
[2016-12-05] MEDS ORDERED: MAGNESIUM SULFATE 2 GM/S.W.I. 2 GM/50 ML IVPB IV ONE (07:54)
--- NOTE | 2016-12-05 08:58 | PROGRESS NOTE ---
DATE: 12/05/2016 SUBJECTIVE: The patient is doing very well. No headache, no diplopia. OBJECTIVE: Vitals: On examination, vitals are stable. HEENT exam: Pupils equal, reactive to light. Improvement of the right eye muscles superior oblique function is improved Chest: Clear. Heart: Sounds are regular. Abdomen: Belly is soft. Umbilical hernia present. INVESTIGATIONS: CBC: White cell count 7.4, hematocrit 35, platelets 176. SMA 7 is normal except potassium 3.2, magnesium 1.2. LDL is 75. MRI of the brain: Chronic ischemic changes. Echocardiography report: An LV systolic function 65%. Diastolic dysfunction. Borderline aortic root enlargement. ASSESSMENT AND PLAN: 1. Headache and diplopia due to right superior oblique weakness improving. Workup was negative. 2. Abdominal pain. Intravenous proton pump inhibitor; Dr. Sara Cameron is doing esophagogastroduodenoscopy in the morning. 3. Hypokalemia, hypomagnesemia. Replace the potassium and magnesium, and hopefully will be discharged after the esophagogastroduodenoscopy and follow up. LEVEL OF DOCUMENTATION: 25 minutes. cc: Brennen Lee MD MTDD
[2016-12-05] MEDS: NS 1,000 ML IV SCH ×2 (09:57→22:15)
[2016-12-05] MEDS: ZANAFLEX PO SCH ×2 (09:58→22:15)
[2016-12-05] MEDS: HEPARIN SUBQ SCH (09:59)
[2016-12-05] MEDS: SODIUM CHLORIDE 0.9% INJ SCH (10:00)
[2016-12-05] MEDS: PROTONIX IV SCH ×2 (10:00→22:15)
[2016-12-05] MEDS: ASPIRIN EC PO SCH (10:00)
[2016-12-05] MEDS: NICODERM PATCH TD SCH (10:00)
[2016-12-05] MEDS: POTASSIUM CHLORIDE 60 MEQ in NS 500 ML IV ONE ×3 (10:45→12:08)
--- NOTE | 2016-12-05 11:13 | PROGRESS NOTE ---
DATE: 12/05/2016 Mr. Orona is awake and alert. He reports diplopia continues to improve. On bedside testing, he consistently reports vertical diplopia on upgaze and on downgaze, worse on downgaze, but less prominent than yesterday. I did not do cover/uncover testing today. He told me that he feels more steady when he stands, but he has not attempted to take steps unassisted. I will make sure that physical therapy is involved. No new suggestion from neurologic standpoint today. Thanks for allowing me to follow Mr. Orona. cc: MD Brennen Pretty III, MD [facility]
[2016-12-05] MEDS ORDERED: ROBINUL ONE (17:34)
[2016-12-05] MEDS ORDERED: XYLOCAINE-MPF 2% ONE (17:34)
[2016-12-05] MEDS ORDERED: DIPRIVAN 1% ONE (17:34)
[2016-12-05] MEDS: LIPITOR PO SCH (22:15)
[2016-12-05] MEDS: PERCOCET-5 PO PRN (22:15)
[2016-12-06] MEDS: CARAFATE LIQUID PO SCH ×2 (01:00→06:33)
[2016-12-06] MEDS: PERCOCET-5 PO PRN (04:49)
[2016-12-06 08:07] VITALS: BP 157/90
[2016-12-06] MEDS: ALBUTEROL NEB INH PRN (08:19)
--- NOTE | 2016-12-06 08:53 | Carotid Study ---
DATE: 12/03/2016 PROCEDURE: Bilateral duplex and color flow imaging of the carotid arteries performed using the [employer] Vivid E9 Ultrasound System with a 9L-D transducer. REFERRING PHYSICIAN: Natalie Snyder MD INTERPRETING PHYSICIAN: Margot Carrero MD TECH: Thomas Roman, [facility] INDICATIONS: A 66-year-old male with a CVA stroke (ICD-10: 163.50). OBSERVED DATA RIGHT LEFT Brachial Blood Pressure Carotid Pulse Bruits: Carotid/Sub DIAGRAM OF ULTRASOUND IMAGING R L RIGHT INT EXT INT EXT LEFT Manny (cm/s) Manny (cm/s) Subclavian 65/0 Subclavian 44/0 CCA Proximal 51/13 CCA Proximal 59/14 CCA Distal 63/19 CCA Distal 54/14 Bulb 51/14 Bulb 46/12 ICA Proximal 70/30 ICA Proximal 53/19 ICA Mid 63/28 ICA Mid 50/20 ICA Distal 102/40 ICA Distal 48/19 ECA 53/7 ECA 63/9 Vertebral 37/15 A Vertebral 35/13 A ICA/CCA Ratio 1.63 ICA/CCA Ratio 0.91 % Stenosis 0%-39% % Stenosis 0%-39% PHYSICIAN INTERPRETATION: Mild atherosclerotic disease of the distal common and internal carotid arteries bilaterally without evidence of a hemodynamically significant lesion in either carotid system. cc: MD Deondre Fragoso CRNP Jagan Reddy, MD
[2016-12-06] MEDS ORDERED: PNEUMOVAX 23 IM ONE (09:03)
[2016-12-06] MEDS ORDERED: MAGNESIUM SULFATE 2 GM/S.W.I. 2 GM/50 ML IVPB IV ONE (09:06)
[2016-12-06] MEDS ORDERED: KLOR-CON PO ONE (09:06)
[2016-12-06] MEDS: PROTONIX IV SCH (09:17)
[2016-12-06] MEDS: NICODERM PATCH TD SCH (09:17)
[2016-12-06] MEDS: SODIUM CHLORIDE 0.9% INJ SCH (09:18)
[2016-12-06] MEDS: ZANAFLEX PO SCH (09:18)
[2016-12-06] MEDS: ASPIRIN EC PO SCH (09:18)
--- NOTE | 2016-12-06 10:35 | PROGRESS NOTE ---
DATE: 12/06/2016 Mr. Orona is awake, alert, attentive, appropriate. He reports his diplopia continues to be improved. He did stand and walk with physical therapy assistance and believes that he is very close to baseline with gait. Workup includes carotid ultrasound a few days ago reported to show atherosclerotic disease bilaterally but no hemodynamically significant stenosis bilaterally. I reviewed the brain MRI report which showed chronic microvascular changes but nothing focal or acute and specifically no evidence of brainstem or cerebellar infarction. Echocardiogram was technically difficult but did not show source of embolus. His blood pressures have been 140s to 160s in recent days, and he is tolerating that. His home medicine list includes metoprolol ER 100 mg daily. Blood pressure medicine has been held during hospitalization. He has continued aspirin and atorvastatin. Blood sugars have been moderately elevated. He has reported past history of diagnosis of metabolic syndrome. He may have diabetes mellitus. I encouraged him to be aggressive with management of his risk factors, to be careful with gait and activities and to report any changes. I will be glad to see Mr. Orona again if needed. cc: MD Brennen Pretty III, MD [facility]
--- NOTE | 2016-12-07 16:42 | OPERATIVE NOTE ---
PROCEDURE DATE: 12/05/2016 REFERRING PHYSICIAN: Mirna Lee M.D. INDICATION FOR PROCEDURE: 1. Dyspepsia. 2. Anemia. 3. Heartburn. 4. History of peptic ulcer disease. PROCEDURE PERFORMED: Esophagogastroduodenoscopy. CONSENT: Informed consent was obtained from the patient prior to the procedure. The risks, benefits and alternatives were discussed. MEDICATION: The patient received monitored anesthesia care. PERFORMING PHYSICIAN: Sara Cameron M.D. ASSISTANTS: 1. ST. [place] 2. Valencia France RN. 3. Magdalena Bro CRNA. 4. Shun Hernández M.D. (anesthesia). COMPLICATIONS: There were no complications. ESTIMATED BLOOD LOSS: None. SPECIMENS REMOVED: None. FINDINGS: After sedation was achieved, the upper endoscope was inserted to the 2nd portion of the duodenum. The hypopharynx appeared endoscopically normal. The tubular esophagus was normal to the distal esophagus. There was mild hyperemia in the distal esophagus consistent with grade A erosive esophagitis. The GE junction appeared otherwise normal at 40 cm. In the gastric lumen, there was minimal gastritis. On retroflexed view the fundus appeared normal. On forward view the pylorus was normal. Upon intubation of the duodenum the 1st and 2nd portion were normal as was the ampulla of Vater. After the exam was complete, the lumen was decompressed and the scope was removed without incident. IMPRESSION: 1. Mild erosive esophagitis. 2. Mild gastritis. 3. Otherwise normal endoscopy. RECOMMENDATION: 1. There were no findings to account for the patient's pain or his anemia. 2. I would continue Protonix but consider transition to oral therapy. 3. Will continue the Carafate but would limit the treatment course to 1 month and then stop. 4. He should undergo colonoscopy which can be scheduled either as an inpatient or an outpatient as the patient is hemodynamically stable. 5. He reports refractory symptoms of dyspepsia. It is reasonable to consider an outpatient gastric emptying study. 6. Because of the persistent dyspepsia, it is reasonable to check an H. pylori antigen as the patient did have evidence of mild gastritis. 7. I will have the patient return to clinic following his colonoscopy. I will have the office contact the patient to make arrangements for his procedure. cc: P. MD Brennen Napier MD [facility]
--- NOTE | 2016-12-08 18:16 | DISCHARGE SUMMARY ---
ADMISSION DATE: 12/03/2016 DISCHARGE DATE: 12/06/2016 DISCHARGING DIAGNOSIS: Headache and diplopia due to right superior oblique muscle weakness resolved. SECONDARY DIAGNOSES: 1. Chronic obstructive pulmonary disease. 2. Coronary artery disease. 3. Depression with anxiety. 4. History of acid reflux disease. 5. Glucose intolerance. 6. Hypertension. 7. Hyperlipidemia. 8. Hyperuricemia. 9. Hypogonadism. 10. Umbilical hernia. 11. History of kidney stones. 12. Benign prostatic hyperplasia. 13. History of left hip periprosthetic fracture. 14. Chronic back pain. 15. Azotemia due to intravascular volume depletion. 16. Hypokalemia and hypomagnesemia. PROCEDURES: EGD findings were unremarkable. RADIOLOGY PROCEDURES: Carotid Dopplers 12/03/2016: No hemodynamic stenosis in either internal or carotid system. Antegrade flow in both vertebral arteries. MRI of the brain: Mild chronic microvascular imaging, no acute abnormality. Chest x-ray: Negative chest. CT head: No hemorrhage, atrophy with chronic microvascular ischemic changes. Echocardiography findings: Technically difficult study, mild aortic valve sclerosis without stenosis. EF 65%. Diastolic dysfunction. Upper limits of aortic root. BRIEF HISTORY: Please see the H and P that was done by hospitalist on 2016. In brief, he is a 66-year-old white gentleman, admitted to the hospital with headache, double vision, without any obvious neurological deficits. At the time of admission, patient has right superior oblique muscle weakness and appropriate consult was obtained. Other workup was unremarkable. The patient got better and the extraocular muscles intact. The patient also complains of upper abdominal pain. Dr. Sara Cameron was consulted. She did an EGD without any obvious findings. She is planning to do colonoscopy as an outpatient. LABORATORIES: At the time of discharge as follows. CBC: White cell count 7.4 , hematocrit 35, platelet 176,000. SMA 7. Sodium 135, potassium 3.2, chloride 96, BUN 14, creatinine 1.0, glucose 123, magnesium 1.2, cholesterol 119, HDL 25, LDL 75. HOSPITAL COURSE: During his hospital course he was dehydrated and given IV fluids. Follow up hydration. He has hypokalemia and hypomagnesemia which were replaced. At the time of discharge, patient was stable. DISCHARGE INSTRUCTIONS: 1. Outpatient colonoscopy by Dr. Cameron. 2. Pneumococcal vaccine 12/06/2016, tetanus 12/03/2015. 3. Medications are Protonix 40 mg daily, aspirin 80 mg daily, metoprolol 100 daily, Lexapro 20 mg daily, DuoNeb nebulizers as needed, Crestor 5 mg daily, Spiriva 1 puff p.o. b.i.d., gabapentin 600 p.o. t.i.d., vitamin D 89509 once a week, Percocet q. 4 hours through the [facility]. 4. Follow up in my office next week as well as operating room nurse Dr. Sara Cameron. cc: MD Dr. Anamaria Alvarez MD [facility]
== END 2016-12-06 11:20 | disposition home or self-care (01) ==
LOC: ED 21:11 → SUATTDRO 12-03 02:18 → 3N 12-03 02:18
PROVIDERS: ADMIT Internal Medicine; ATTEND Internal Medicine